=== PATIENT | male | born 1960 | race Hispanic/Latino ===

== ENCOUNTER 2016-10-26 15:06 | Outpatient (CLI) | payer BC ==
--- NOTE | 2016-10-26 15:57 | Cat Scan Report ---
CT HEAD WITHOUT CONTRAST INDICATION: Headache, breast pain. COMPARISON: None similar at this institution. FINDINGS: Noncontrast head CT demonstrates normal ventricles and sulci without acute or recent infarct, hemorrhage, mass effect or midline shift. No abnormal extra-axial fluid collections. Minimal benign bilateral basal ganglia calcifications. Posterior fossa structures and basilar cisterns appear within normal limits. Symmetric eye globes. Mild nasal septal deviation. Clear paranasal sinuses and mastoid air cells. Intact calvarium. Normal overlying scalp soft tissues. Few radiopaque dental material incidentally noted. CONCLUSION: No acute intracranial CT abnormality, as described. Thank you for the opportunity to participate in this patient's care.
--- NOTE | 2016-10-26 16:42 | Mammography Report ---
BILATERAL DIGITAL DIAGNOSTIC MAMMOGRAM with CAD and RIGHT BREAST ULTRASOUND: 10/26/16 CLINICAL: 56-year-old male with bilateral mastodynia and itching, right worse than left. COMPARISON:None. FINDINGS: Fatty breasts. No mass, architectural distortion or suspicious calcifications.No skin thickening. Ultrasound of both breasts (including all four quadrants and the retroareolar area of the 2 breast) was performed and demonstrated normal fatty structures. No mass, cyst or shadowing. According to the technologist, no skin lesion or nipple lesion. IMPRESSION: Normal mammogram and normal bilateral breast ultrasound. BI-RADS CATEGORY: 1 - - Negative RECOMMENDATION: Management based on the clinical breast exam. COMMENT: Patient follow-up letters are generated by our Dr. Jerry's [employer] application.
== END 2016-10-26 15:07 | disposition home or self-care (01) ==
LOC: CT 15:06
PROVIDERS: ATTEND Family Medicine Adult Medicine
DX: N64.4 Mastodynia (principal); G23.8 Other specified degenerative diseases of basal ganglia; J34.2 Deviated nasal septum; R51 Headache
CPT/HCPCS: 70450; 76641; G0204; 77066